=== PATIENT | male | born 1960 | race Caucasian/White ===

== ENCOUNTER 2017-09-17 12:24 | Inpatient (IN) | payer OTHER ==
[~2017-09-17] VITALS: Ht 167.6 cm; Wt 58.3 kg
[~2017-09-17 12:24] MED LIST: ASPIR 8181 MG PO; AUG500 PO; BD LACTINEX1.4 MG PO; CEFDINIR300 M1 PO; COLACE100 MG PO; DIFLUCAN200 MG PO; LANTUS SOLOS100 U/M1 SQ; LIPI10 PO; MAGNESIUM OXID400 MG PO; MYFORTIC180 MG PO; NORCO1 TA2 PO; OMEPRAZOLE40 M1 PO; PREDNISONE5 MG PO; PROGRAF0.5 MG PO; PROGRAF1 MG PO
[2017-09-17 14:31] LABS: BASOPHIL % 0.3 % (0-2)
[2017-09-17 14:32] LABS: CALCIUM 8.3 mg/dL (8.5-10.1); CARBON DIOXIDE 25.9 mmol/L (21-32); CHLORIDE SERUM 100 mmol/L (98-107); CREATININE SERUM 0.9 mg/dL (0.7-1.3); GFR1 > 60 mL/min; GLUCOSE SERUM 423 mg/dL (74-106); POTASSIUM SERUM 4.4 mmol/L (3.5-5.1); SODIUM SERUM 132 mmol/L (136-145)
[2017-09-17 14:33] LABS: PLATELET COUNT 127 x10^3mcL (130-400); RED CELL DISTRIBUTION WIDTH 15.8 % (11.5-14.5)
[2017-09-17 14:42] LABS: microscopic required? YES; urine erythrocyte 1+ (NEGATIVE)
[2017-09-17 14:43] LABS: ALKALINE PHOSPHATASE 119 U/L (46-116); ALT/SGPT 33 U/L (16-63); AST/SGOT 27 U/L (15-37); BILIRUBIN TOTAL 1.4 mg/dL (0.20-1.00); HDL CHOLESTEROL 42 mg/dL (40-60); TOTAL PROTEIN, SERUM 6.2 g/dL (6.4-8.2)
[2017-09-17 14:44] LABS: ALBUMIN 3.1 g/dL (3.4-5.0); CHOLESTEROL 123 mg/dL (<200)
[2017-09-17] MEDS ORDERED: PROGRAF1 MG PO (16:30)
[2017-09-17 16:38] LABS: MAGNESIUM 1.7 mg/dL (1.8-2.4); PHOSPHOROUS 3.5 mg/dL (2.5-4.9)
[2017-09-17 16:40] LABS: T3 TOTAL 0.65 ng/mL
[2017-09-17 16:46] LABS: FREE T4 1.08 ng/dL (0.76-1.46); FREE THYROXINE INDEX 2.8 ug/dL (1.4-4.5); T4(THYROXINE) 7.6 ug/dL (4.7-13.3)
[2017-09-17 16:55] LABS: AMPHETAMINE QUAL UR NONE DETECTED (NEG <=1000)
[2017-09-17 17:21] VITALS: BP 114/86
[2017-09-17 21:19] VITALS: BP 133/66
[2017-09-18 06:24] LABS: CALCIUM 8.1 mg/dL (8.5-10.1); CARBON DIOXIDE 24.4 mmol/L (21-32); CHLORIDE SERUM 105 mmol/L (98-107); CREATININE SERUM 0.8 mg/dL (0.7-1.3); GFR1 > 60 mL/min; GLUCOSE SERUM 217 mg/dL (74-106); MAGNESIUM 1.7 mg/dL (1.8-2.4); PHOSPHOROUS 1.9 mg/dL (2.5-4.9); SODIUM SERUM 135 mmol/L (136-145)
[2017-09-18 06:28] LABS: BASOPHIL % 0.2 % (0-2)
[2017-09-18 06:29] VITALS: BP 126/69
[2017-09-18 07:00] LABS: PLATELET COUNT 115 x10^3mcL (130-400); RED CELL DISTRIBUTION WIDTH 15.8 % (11.5-14.5)
[2017-09-18 09:30] VITALS: BP 129/65
[2017-09-18 13:23] VITALS: BP 123/70
[2017-09-18 17:30] VITALS: BP 132/69
[2017-09-18 21:17] VITALS: BP 138/68
[2017-09-19 06:03] VITALS: BP 141/72
[2017-09-19 07:24] LABS: CALCIUM 7.1 mg/dL (8.5-10.1); CARBON DIOXIDE 18.3 mmol/L (21-32); CHLORIDE SERUM 111 mmol/L (98-107); CREATININE SERUM 0.5 mg/dL (0.7-1.3); GFR1 > 60 mL/min; MAGNESIUM 1.4 mg/dL (1.8-2.4); PHOSPHOROUS 1.6 mg/dL (2.5-4.9); SODIUM SERUM 137 mmol/L (136-145)
[2017-09-19 07:38] LABS: GLUCOSE SERUM 56 mg/dL (74-106); POTASSIUM SERUM 2.8 mmol/L (3.5-5.1)
[2017-09-19 08:07] LABS: PLATELET COUNT 126 x10^3mcL (130-400); RED CELL DISTRIBUTION WIDTH 15.7 % (11.5-14.5)
[2017-09-19 08:08] LABS: BASOPHIL % 0.1 % (0-2)
[2017-09-19] MEDS ORDERED: POTASSIUM CHLO10 MEQ PO (08:25)
[2017-09-19] MEDS ORDERED: BD LACTINEX1.4 MG PO (08:25)
[2017-09-19] MEDS ORDERED: LEVOFLOXACIN500 M1 PO (08:25)
[2017-09-19] MEDS ORDERED: NPHOS PO (08:26)
[2017-09-19] MEDS ORDERED: MAGNESIUM OXID400 MG PO (08:26)
[2017-09-19 08:30] VITALS: BP 124/66
[2017-09-19] MEDS ORDERED: NITROFURANTOIN100 MG PO (10:11)
[2017-09-19 13:15] VITALS: BP 131/76
[2017-09-19 16:14] VITALS: Ht 167.6 cm; Wt 58.3 kg
[2017-09-19 17:12] LABS: CALCIUM 8.7 mg/dL (8.5-10.1); CARBON DIOXIDE 23.9 mmol/L (21-32); CHLORIDE SERUM 105 mmol/L (98-107); CREATININE SERUM 0.7 mg/dL (0.7-1.3); GFR1 > 60 mL/min; GLUCOSE SERUM 240 mg/dL (74-106); MAGNESIUM 2.5 mg/dL (1.8-2.4); PHOSPHOROUS 2.1 mg/dL (2.5-4.9); POTASSIUM SERUM 4.9 mmol/L (3.5-5.1); SODIUM SERUM 136 mmol/L (136-145)
[2017-09-19 17:30] VITALS: BP 166/81
[2017-09-19 18:02] VITALS: BP 144/81
[2017-09-19 18:03] VITALS: BP 144/81
== END 2017-09-19 19:30 | disposition home or self-care (01) | DRG 871 ==
LOC: ED 12:24 → DU 15:29
PROVIDERS: Emergency Medicine; Family Medicine; Family Medicine Sports Medicine
DX: A41.9 Sepsis, unspecified organism (principal); N17.0 Acute kidney failure with tubular necrosis; N39.0 Urinary tract infection, site not specified; Z94.0 Kidney transplant status; E87.1 Hypo-osmolality and hyponatremia; E44.0 Moderate protein-calorie malnutrition; R65.20 Severe sepsis without septic shock; E11.21 Type 2 diabetes mellitus with diabetic nephropathy; E11.65 Type 2 diabetes mellitus with hyperglycemia; E11.319 Type 2 diabetes mellitus with unspecified diabetic retinopathy without macular edema; E11.51 Type 2 diabetes mellitus with diabetic peripheral angiopathy without gangrene; K21.9 Gastro-esophageal reflux disease without esophagitis; E83.42 Hypomagnesemia; D69.59 Other secondary thrombocytopenia; I35.1 Nonrheumatic aortic (valve) insufficiency; I36.1 Nonrheumatic tricuspid (valve) insufficiency; H54.61 Unqualified visual loss, right eye, normal vision left eye; Z79.82 Long term (current) use of aspirin; Z79.4 Long term (current) use of insulin; Z68.21 Body mass index [BMI] 21.0-21.9, adult; Z86.73 Personal history of transient ischemic attack (TIA), and cerebral infarction without residual deficits
CPT/HCPCS: 82962; 83880; 84439; J0696; J1815; J2405; J3475; J3480; J7030; J7050; J7507; J7512; Q0092

== ENCOUNTER 2019-01-27 18:00 | Inpatient (IN) | payer OTHER ==
[~2019-01-27] VITALS: Ht 167.6 cm; Wt 58.5 kg
[~2019-01-27 18:00] MED LIST changes: +LEVOFLOXACIN500 M1 PO; +NITROFURANTOIN100 MG PO; +NPHOS PO; +POTASSIUM CHLO10 MEQ PO
--- NOTE | 2019-01-27 18:53 | NUR ---
DTR BRINGS IN FATHER FROM HOME FOR SUDDEN ONSET NAUSEA/VOMTIING SINCE 0400 TODAY ASSOCIATED WITH EPIGATRIC ABDOMINAL PAIN. DENIES ANY DYSURIA, BUT REPORTS FREQUENCY. LEFT LOWER ARM SHUNT NOTED, BUT REPORTS HE HASNT HAD DIALYSIS SINCE 2013, HE'S A KIDNEY TRANSPLANT RECIEPIENT IN 2013. PT AAOX4, IN MILD DISTRESS, +FACIAL GRIMACING NOTED. RESP EVEN AND UNLABORED, ON RA @98%. SKIN NORMAL FOR ETHNICITY, BUT PER DTR STATES HE LOOKS A LITTLE JAUNDICED. DENIES ANY DRUG AND ETOH ABUSE. PT INFORMED TO COLLECT URINE SPECIMEN, PT TO RESTROOM AT THIS MOMENT.
--- NOTE | 2019-01-27 20:15 | NUR ---
XRAY AT BEDSIDE.
[2019-01-27 20:16] LABS: UA SPECIFIC GRAVITY 1.025 (1.005-1.035); microscopic required? YES; urine erythrocyte 3+ (NEGATIVE)
[2019-01-27 20:27] LABS: CALCIUM 7.4 mg/dL (8.5-10.1); CARBON DIOXIDE 23.6 mmol/L (21-32); CHLORIDE SERUM 96 mmol/L (98-107); CREATININE SERUM 1.3 mg/dL (0.7-1.3); GFR1 60 mL/min; GLUCOSE SERUM 350 mg/dL (74-106); PLATELET COUNT 150 x10^3mcL (130-400); POTASSIUM SERUM 4.9 mmol/L (3.5-5.1); SODIUM SERUM 134 mmol/L (136-145)
[2019-01-27 20:29] LABS: RED CELL DISTRIBUTION WIDTH 14.7 % (11.5-14.5)
[2019-01-27 20:34] LABS: ALBUMIN 3.3 g/dL (3.4-5.0); ALKALINE PHOSPHATASE 135 U/L (46-116); ALT/SGPT 23 U/L (16-63); AST/SGOT 23 U/L (15-37); BILIRUBIN TOTAL 1.2 mg/dL (0.20-1.00); TOTAL PROTEIN, SERUM 6.8 g/dL (6.4-8.2)
[2019-01-27 20:57] LABS: BAND NEUTROPHIL 4 % (0-10); METAMYELOCTE 1 % (0-2); MONOCYTE 5 % (0-7); SEGMENTED NEUTROPHILS 85 % (37-75)
[2019-01-27 20:58] LABS: rbc morphology (normal/abnorm) NORMAL (NORMAL)
[2019-01-27 20:59] LABS: PLATELET MORPHOLOGY PLATELETS NORMAL
--- NOTE | 2019-01-27 21:03 | NUR ---
MD DAVIES AWARE OF PTS TEMP, AWATING ORDERS.
--- NOTE | 2019-01-27 22:48 | NUR ---
PT RESTING WITH EYE CLOSE, EQUAL CHEST RISE AND FALL NOTED. PT HYPER TENSIVE AT 171/81, ALL OTHER VITALS STABLE. NO ACUTE DISTRESS NOTED.
--- NOTE | 2019-01-27 23:13 | NUR ---
GAVE REPORT TO SAÚL WITH [facility] [employer].
--- NOTE | 2019-01-27 23:14 | NUR ---
GAVE REPORT TO SAÚL WITH [facility] [employer] FOR ADMISSION.
[2019-01-27] MEDS ORDERED: SENSIPAR30 M1 PO ×2 (23:38→23:39)
[2019-01-27] MEDS ORDERED: CEL500 PO (23:38)
[2019-01-27] MEDS ORDERED: DIFLUCAN200 MG PO (23:38)
[2019-01-27] MEDS ORDERED: HUMALOG100 UNIT/1 SQ (23:39)
--- NOTE | 2019-01-27 23:51 | NUR ---
REPORT GIVEN TO DENVER DENNISON TO ASSUME CARE OF PT.
--- NOTE | 2019-01-28 00:30 | NUR ---
RECEIVED PT FROM ED VIA [facility]ERNEY, CAME IN DUE TO VOMITING, DIZZINESS AND FEVER X1 WEEK. AAOX4. C/O MILD DIZZINESS ON AMBULATION. ABLE TO FOLLOW COMMANDS. NO FACIAL DROOP/ARM DRIFT NOTED. NO SOB NOTED, LUNG SOUNDS CTA. DENIES CHEST PAIN/PRESSURE. 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 BOWEL SOUNDS ACTIVE. DENIES ABDOMINAL PAIN. C/O BURNING SENSATION ON URINATION. W/ OLD GRAFT ON THE LEFT ARM, HAS HISTORY OF KIDNEY TRANSPLANT. 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 SIDE RAILS UPX2. CALL LIGHT ON REACH. ENDORSED TO PRIMARY NURSE DENVER FOR CONTINUITY OF CARE
[2019-01-28 00:38] VITALS: BP 105/59
[2019-01-28 00:45] VITALS: Ht 167.6 cm; Wt 58.5 kg
--- NOTE | 2019-01-28 00:48 | NUR ---
PT C/O NAUSEA AND VOMITING. MEDICATED WITH PRN ZOFRAN PER JUL. WILL CONTINUE TO MONITOR.
[2019-01-28 06:08] VITALS: BP 146/80
[2019-01-28 06:42] LABS: CALCIUM 7.2 mg/dL (8.5-10.1); CARBON DIOXIDE 21.9 mmol/L (21-32); CHLORIDE SERUM 104 mmol/L (98-107); GFR1 > 60 mL/min; GLUCOSE SERUM 239 mg/dL (74-106); POTASSIUM SERUM 4.5 mmol/L (3.5-5.1); SODIUM SERUM 139 mmol/L (136-145)
--- NOTE | 2019-01-28 06:47 | NUR ---
PT TEMP 100.3, COOLING MEASURES IN PLACE. MEDICATED WITH PRN TYLENOL PER JUL. CURRENT TEMP 100. PT SLEPT AT INTERVALS THROGHOUT THE SHIFT, BREATHING EVEN AND UNLABORED ON RA. NO ACUTE DISTRESS NOTED. BED AT LOWEST SETTING. SIDE RAILS X2 UP. CALL LIGHT WITHING REACH. WILL ENDORSE CARE TO AM NURSE.
[2019-01-28 07:18] LABS: PLATELET COUNT 123 x10^3mcL (130-400)
--- NOTE | 2019-01-28 07:40 | NUR ---
RECEIVED PT FROM COLLISION CENTER MANAGER RN. Allie/NIRAV. MED SURG. DENIES CHEST PAIN/PRESSURE. RESPIRATIONS EQUAL AND UNLABORED ON RA. DENIES SOB. PT DENIES ANY PAIN AT THIS TIME. PT STATES HE DOES HAVE PAIN UPON URINATION. TEMPERATURE CHECKED WAS 99.5. ENCOURAGED PT TO KEEP COOLING MEASURES IN PLACE TO PREVENT TEMPERATURE FROM INCREASING. PT VERBALIZED UNDERSTANDING. PT DENIES ANY NAUSEA AT THIS TIME. IV PATENT AND INFUSING TO RFA. NO REDNESS OR SWELLING NOTED. WILL CONTINUE TO MONITOR. CALL LIGHT IN REACH. BED IN LOWEST POSITION.
[2019-01-28 09:39] VITALS: BP 111/63
--- NOTE | 2019-01-28 10:28 | NUR ---
PT SITTING UP IN BED. NO ACUTE RESP DISTRESS NOTED ON RA. PT DENIES ANY PAIN AT THIS TIME. GIVEN PO MEDS. TOLERATED WELL. EMPTIED 150 ML OF MOY URINE FROM URINAL. TEMPERATURE CHECKED WAS 98.1. IV ANTIBIOTICS INFUSING ORDERED. NO REDNESS OR SWELLING NOTED. WILL CONTINUE TO MONITOR. CALL LIGHT IN REACH. BED IN LOWEST POSITION.
[2019-01-28 13:35] LABS: BAND NEUTROPHIL 8 % (0-10); MONOCYTE 7 % (0-7); SEGMENTED NEUTROPHILS 80 % (37-75)
[2019-01-28 13:36] LABS: PLATELET MORPHOLOGY LARGE PLATELET SEEN; rbc morphology (normal/abnorm) NORMAL (NORMAL)
--- NOTE | 2019-01-28 14:20 | NUR ---
PT SITTING UP IN BED. NO ACUTE RESP DISTRESS NOTED ON RA. PT DENIES ANY PAIN AT THIS TIME. GIVEN PO MEDS. TOLERATED WELL. WILL CONTINUE TO MONITOR. CALL LIGHT IN REACH. BED IN LOWEST POSITION.
--- NOTE | 2019-01-28 16:24 | NUR ---
PT SITTING UP IN BED. NO ACUTE RESP DISTRESS NOTED ON RA. PT C/O PAIN UPON URINATION. EDUCATED PT THAT IT CAN HAPPEN WHEN PT HAVE UTI. PT VERBALIZED UNDERSTANDING. PT DENIES ANY OTHER PAIN AT THIS TIME. IV PATENT AND INFUSING TO RFA. NO REDNESS OR SWELLING NOTED. PT DENIES ANY NAUSEA AT THIS TIME. EMPTIED 320 ML OF DARK YELLOW URINE FROM URINAL. WILL CONTINUE TO MONITOR. CALL LIGHT IN REACH. BED IN LOWEST POSITION.
[2019-01-28 16:51] VITALS: BP 125/76
--- NOTE | 2019-01-28 19:20 | NUR ---
PT RECEIVED FROM AM NURSE. PT A/O X4, [place] SPEAKING, ABLE TO MAKE NEEDS KNOWN. MED-SURG, DENIES ANY CP/PRESSURE. PULSES PALPALBE, NO EDEMA PRESENT. BREATHING IS EVEN AND UNLABORED, NO RESP DISTRESS NOTED. ABD SOFT AND NONDISTENDED, DENIES N/V. VOIDS FREELY, URINAL AT BEDSIDE; PT REPORTS BURNING UPON URINATION AT TIMES. OLD AV SHUNT NOTED TO [facility], PT HAS HX OF KIDNEY TRANSPLANT. AMBULATORY WITH STEADY GAIT. SCAB NOTED TO INDERJIT DACOSTA. PT DENIES HAVING ANY PAIN AT THIS TIME. IV TO RFA, PATENT AND INTACT, SITE FREE FROM REDNESS OR SWELLING. CONTACT PRECAUTION IN PLACE FOR HX OF MDRO IN URINE. NO ACUTE DISTRESS NOTED. CALL LIGHT WITHIN REACH. WILL CONT TO MONITOR.
[2019-01-28 20:38] VITALS: BP 112/64
--- NOTE | 2019-01-29 03:42 | NUR ---
PT C/O 5/10 HEADACHE PAIN, PRN TYLENOL GIVEN ORDERED. NO ACUTE DISTRESS NOTED. WILL CONT TO MONITOR.
[2019-01-29 05:40] VITALS: BP 130/73
--- NOTE | 2019-01-29 06:05 | NUR ---
PT SLEPT AT INTERVALS THROUGHOUT THE EVENING. BREATHING IS EVEN AND UNLABORED, NO RESP DISTRESS NOTED. NO ACUTE CHANGES ENCOUNTERED DURING SHIFT. ALL NEEDS MET AND ANTICIPATED. PT COMPLIANT WITH NURSING CARE. IV TO RFA, PATENT AND INTACT. CONTACT PRECAUTIONS MAINTAINED. CALL LIGHT WITHIN REACH. WILL ENDORSE CARE TO AM NURSE.
[2019-01-29 06:31] LABS: CALCIUM 7.2 mg/dL (8.5-10.1); CARBON DIOXIDE 21.8 mmol/L (21-32); CHLORIDE SERUM 102 mmol/L (98-107); CREATININE SERUM 0.7 mg/dL (0.7-1.3); GFR1 > 60 mL/min; GLUCOSE SERUM 241 mg/dL (74-106); MAGNESIUM 1.4 mg/dL (1.8-2.4); SODIUM SERUM 135 mmol/L (136-145)
--- NOTE | 2019-01-29 07:28 | NUR ---
PT IN NO ACUTE DISTRESS. CONTINUITY OF CARE ENDORSED TO AM NURSE. ALL QUESTIONS AND CONCERNS ADDRESSED.
--- NOTE | 2019-01-29 07:30 | NUR ---
RECEIVED PT FROM INTEGRATED MARKETING SPECIALIST RN. Allie/NIRAV. MED SURG. DENIES CHEST PAIN/PRESSURE. RESPIRATIONS EQUAL AND UNLABORED ON RA. DENIES SOB. PT DENIES ANY PAIN AT THIS TIME. PT STATES "I SOMETIMES HAVE PAIN WHEN PEEING" LFA OLD SHUNT/GRAFT. IV TO RFA PATENT AND INFUSING. NO REDNESS OR SWELLING NOTED. LLE DRY SCAB IN PLACE, INDERJIT. WILL CONTINUE TO MONITOR. CALL LIGHT IN REACH. BED IN LOWEST POSITION.
[2019-01-29 08:01] LABS: BASOPHIL % 0 % (0-2); PLATELET COUNT 121 x10^3mcL (130-400); RED CELL DISTRIBUTION WIDTH 14.8 % (11.5-14.5)
[2019-01-29 08:21] VITALS: BP 143/79
--- NOTE | 2019-01-29 09:16 | NUR ---
PT SITTING UP IN CHAIR AT BEDSIDE. FAMILY AT BEDSIDE. NO ACUTE RESP DISTRESS NOTED ON RA. PT DENIES ANY PAIN AT THIS TIME. GIVEN PO MEDS. TOLERATED WELL. IV ANTIBIOTICS INFUSING ORDERED. NO REDNESS OR SWELLING NOTED. WILL CONTINUE TO MONITOR. CALL LIGHT IN REACH. BED IN LOWEST POSITION.
--- NOTE | 2019-01-29 12:16 | NUR ---
DR. LINCOLN AT BEDSIDE EXPLAINING TO PT DISCHARGE PLAN FOR TOMORROW, STILL AWAITING FINAL BLOOD CULTURE RESULTS. DR. LINCOLN MADE AWARE OF BLOOD SUGARS, WILL CHANGE DIET TO [facility] AND ADD ACCU CHECKS WITH SLIDING SCALE PROTOCOL.
--- NOTE | 2019-01-29 13:35 | NUR ---
PT SITTING UP IN BED. PT EATING LUNCH AND TOLERATING WELL. PT DENIES ANY PAIN AT THIS TIME. GIVEN PO MEDS. TOLERATED WELL. IV PATENT AND INFUSING TO LFA. NO REDNESS OR SWELLING NOTED. EMPTIED 220 ML OF CLEAR YELLOW URINE FROM URINAL. WILL CONTINUE TO MONITOR. CALL LIGHT IN REACH. BED IN LOWEST POSITION.
[2019-01-29] MEDS ORDERED: PROGRAF1 MG PO (17:16)
[2019-01-29 17:20] VITALS: BP 158/56
--- NOTE | 2019-01-29 17:39 | NUR ---
PT SITTING UP AT BEDSIDE. PT BROUGHT IN PT HOME MEDICATION. MED RECONCILIATION UPDATED. PAGED DR. SALMERON REGARDING HOME MEDS, AWAITING CALL BACK. PT BLOOD SUGAR CHECKED WAS 525, RECHECKED WAS 484, GIVEN 21 UNITS OF REGULAR INSULIN PER SLIDING SCALE, PROTOCOL INITIATED. WILL NOTIFY DR. SALMERON. WILL RECHECK BLOOD SUGAR AFTER 15 MINUTES. WILL CONTINUE TO MONITOR. CALL LIGHT IN REACH. BED IN LOWEST POSITION.
--- NOTE | 2019-01-29 18:33 | NUR ---
PAGED [facility] AGAIN, WAS TOLD, DR. AYALA IS YOUTH NUTRITIONAL MONITOR, AWAITING CALL BACK.
--- NOTE | 2019-01-29 18:53 | NUR ---
SPOKE WITH DR. AYALA, WOOD GRINDER OPERATOR FOR DR. LINCOLN. DR. AYALA NOTIFIED OF BLOOD SUGAR OF 484, GIVEN 21 UNITS OF REGULAR INSULIN PER SLIDING SCALE, PT RECHECKED AFTER 1 HOUR WAS 412, PER DR. AYALA CONTINUE TO MONITOR FOLLOW SLIDING SCALE. DR. AYALA ALSO INFORMED OF UPDATED MED REC, PER DR. AYALA OKAY TO CHANGE CELLCEPT 500 MG PO BID, PROGRAFT 1 MG PO BID AND FLUCONAZOLE 200 MG PO BID. CONFIRMED ORDERS TORB, ORDERS ENTERED.
--- NOTE | 2019-01-29 19:20 | NUR ---
PT RECEIVED FROM AM NURSE. PT A/O X4, SURINAMESE SPEAKING, ABLE TO MAKE NEEDS KNOWN. MED-SURG, DENIES ANY CP/PRESSURE. PULSES PALPALBE, NO EDEMA PRESENT. BREATHING IS EVEN AND UNLABORED, NO RESP DISTRESS NOTED. ABD SOFT AND NONDISTENDED, DENIES N/V. VOIDS FREELY, URINAL AT BEDSIDE; PT REPORTS EPISODES OF BURNING UPON URINATION. OLD LEFT ARM GRAFT NOTED. PT HAS HX OF KIDNEY TRANSPLANT. AMBULATORY WITH STEADY GAIT. SCAB NOTED TO INDERJIT DACOSTA. PT DENIES HAVING ANY PAIN AT THIS TIME. IVF INFUSING WELL TO RFA, PATENT AND INTACT, SITE FREE FROM REDNESS OR SWELLING. NO ACUTE DISTRESS NOTED. CALL LIGHT WITHIN REACH. WILL CONT TO MONITOR.
--- NOTE | 2019-01-29 19:25 | NUR ---
ENDORSED CARE TO CAR WASH MANAGER RN IMELDA. ALL QUESTIONS AND CONCERNS ADDRESSED.
[2019-01-29 21:04] VITALS: BP 118/70
--- NOTE | 2019-01-30 00:03 | NUR ---
PT RESTING IN BED WITH EYES CLOSED, BUT IS EASILY AROUSABLE. BREATHING IS EVEN AND UNLABORED, NO RESP DISTRESS NOTED. PT DENIES HAVING ANY PAIN AT THIS TIME. URINAL EMPTIED-400 ML YELLOW URINE NOTED. NO ACUTE DISTRESS NOTED. IVF INFUSING WELL, SITE WNL. CALL LIGHT WITHIN REACH. WILL CONT TO MONITOR.
[2019-01-30 06:09] VITALS: BP 139/84
[2019-01-30 06:37] LABS: BASOPHIL % 0.2 % (0-2); PLATELET COUNT 142 x10^3mcL (130-400); RED CELL DISTRIBUTION WIDTH 14.5 % (11.5-14.5)
[2019-01-30 06:46] LABS: CALCIUM 7.6 mg/dL (8.5-10.1); CARBON DIOXIDE 25.6 mmol/L (21-32); CHLORIDE SERUM 100 mmol/L (98-107); CREATININE SERUM 0.6 mg/dL (0.7-1.3); GFR1 > 60 mL/min; GLUCOSE SERUM 258 mg/dL (74-106); MAGNESIUM 1.4 mg/dL (1.8-2.4); POTASSIUM SERUM 3.8 mmol/L (3.5-5.1); SODIUM SERUM 134 mmol/L (136-145)
--- NOTE | 2019-01-30 06:53 | NUR ---
PT SLEPT AT INTERVALS THROUGHOUT THE EVENING. BREATHING IS EVEN AND UNLABORED, NO RESP DISTRESS NOTED. PT C/O BURNING UPON URINATION, PT REQUESTING TYLENOL. PRN TYLENOL GIVEN ORDERED. NO ACUTE CHANGES ENCOUNTERED DURING SHIFT. ALL NEEDS MET AND ANTICIPATED. PT COMPLIANT WITH NURSING CARE. IV TO RFA, PATENT AND INTACT. CALL LIGHT WITHIN REACH. WILL ENDORSE CARE TO AM NURSE.
--- NOTE | 2019-01-30 08:00 | NUR ---
PATIENT RECEIVED SLEEPY BUT ARROUSABLE. IV INTACT AND PATIENT HAS BEEN WITH ELEVATED BLOOD SUGAR AND NOTED ON PREDNISONE AND ON LANTUS AND REGULAR INSULIN VIA SLIDING SCALE. THE OLD SHUNT TO THE LEFT ARM NOTED AND PATIENT HAS BEEN NOTED AND PATIENT WITH HISTORY OF KIDNEY TRANSPLANT AND KIDNEY FAILURE NOTED. 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 PATIENT HAS HISTORY OF HTN AND HAS HAD A CVA IN 2018. HE DOES NOT SEEM TO HAVE ANY ACUTE WEAKNESS TO THE EXTREMITIES DISPITE THIS. PATIENT HAS CHEST XRAY THAT SHOWS PULMONARY NODULE. LUNGS ARE DIMINISHED BUT DOES NOT APPEAR SOB. THE SKIN IS MOIST BUT NO FEVER AT THIS TIME. HIS VITALS ARE AT 99.2, 84, 18, 139/84, 98%. PATIENT HAS SCABBED AREAS TO THE LOWER AND UPPER EXTREMITES BUT HEALING WELL. NO EDEMA NOTED AND PATIENT HAS BEEN ON ROCPHIN AND DIFLUCAN AND NO ADVERSE REACTION REPORTED. NOTED LABS ARE THE NA AT 135, MAG AT 1.4, CA AT 7.6, AND HIS BLOOD SUGAR OF 406 THIS AM AND 18 UNITS OF REGULAR WAS GIVEN.
--- NOTE | 2019-01-30 08:13 | NUR ---
Patient received in bed. Alert and oriented x 4. Patient is malay speaking. No signs of distress noted. No shortness of breath. Patient able to sit up from bed to chair appropriately. Will continue to monitor. Call light within reach.
[2019-01-30 08:59] VITALS: BP 122/67
[2019-01-30] MEDS ORDERED: CIPRO500 MG PO (09:37)
--- NOTE | 2019-01-30 11:53 | NUR ---
INSERTED 22G IV ON RIGHT HAND. NO SIGNS OF INFILTRATION NOTED. NO BLEEDING, DRAINAGE, OR EDEMA INDICATED.
[2019-01-30] MEDS ORDERED: PROGRAF1 MG PO (13:13)
[2019-01-30 13:14] VITALS: BP 122/67
--- NOTE | 2019-01-30 14:46 | NUR ---
PATIENT HAS RECEIVED ORDERS FOR DISCHARGE HOME. REMOVED IV AND GAVE INSTRUCTIONS AND TO FOLLOW UP WITH DR BECKWITH ON THE . HAD CALLED THE DR OR POSSIBLE ORDERS FOR INCREASE IN HIS DIABETIC MEDICATION THE SUGAR HAVE BEEN HIGH AND IN THE [address] WANTS THE PATIENT TO CONTINUE HIS HOME MEDICATIONS PREVIOUSLY. AWAITING FAMILY FOR MANAGER ADVERTISING. PATIENT TO TAKE CIPRO FOR THE URINARY INFECTION FOR 10 DAYS DIRRECTED.
== END 2019-01-30 14:47 | disposition home or self-care (01) | DRG 872 ==
LOC: ED 18:00 → MU 23:39
PROVIDERS: Emergency Medicine; Internal Medicine Pulmonary Disease; ADMIT Internal Medicine Pulmonary Disease
DX: A41.9 Sepsis, unspecified organism (principal); Z94.0 Kidney transplant status; N39.0 Urinary tract infection, site not specified; B96.89 Other specified bacterial agents as the cause of diseases classified elsewhere; E11.9 Type 2 diabetes mellitus without complications; I12.9 Hypertensive chronic kidney disease with stage 1 through stage 4 chronic kidney disease, or unspecified chronic kidney disease; N18.9 Chronic kidney disease, unspecified; Z68.20 Body mass index [BMI] 20.0-20.9, adult; Z79.4 Long term (current) use of insulin; Z79.84 Long term (current) use of oral hypoglycemic drugs
CPT/HCPCS: 82962; G0378; J0696; J1815; J2405; J2543; J3370; J3475; J7030; J7040; J7050; J7507; J7512; J7517; Q0092

== ENCOUNTER 2019-03-31 15:55 | Observation (INO) | payer OTHER ==
[~2019-03-31] VITALS: Ht 167.6 cm; Wt 56.2 kg
[~2019-03-31 15:55] MED LIST changes: +CEL500 PO; +CIPRO500 MG PO; +HUMALOG100 UNIT/1 SQ; +SENSIPAR30 M1 PO
[2019-03-31 16:07] VITALS: Ht 167.6 cm; Wt 56.2 kg
[2019-03-31 17:53] LABS: microscopic required? YES; urine erythrocyte TRACE (NEGATIVE)
[2019-03-31 17:58] LABS: BASOPHIL % 0 % (0-2); PLATELET COUNT 354 x10^3mcL (130-400); RED CELL DISTRIBUTION WIDTH 15.6 % (11.5-14.5)
[2019-03-31 18:03] LABS: CALCIUM 9.1 mg/dL (8.5-10.1); CARBON DIOXIDE 21.2 mmol/L (21-32); CHLORIDE SERUM 100 mmol/L (98-107); CREATININE SERUM 0.7 mg/dL (0.7-1.3); GFR1 > 60 mL/min; GLUCOSE SERUM 274 mg/dL (74-106); POTASSIUM SERUM 4.2 mmol/L (3.5-5.1); SODIUM SERUM 134 mmol/L (136-145)
[2019-03-31 18:08] LABS: ALKALINE PHOSPHATASE 111 U/L (46-116); ALT/SGPT 25 U/L (16-63); AST/SGOT 14 U/L (15-37); BILIRUBIN TOTAL 0.41 mg/dL (0.20-1.00); LIPASE 44 IU/L (73-393); TOTAL PROTEIN, SERUM 7.1 g/dL (6.4-8.2)
[2019-03-31 18:09] LABS: ALBUMIN 2.5 g/dL (3.4-5.0)
[2019-03-31 20:00] VITALS: BP 184/76
[2019-04-01 02:53] VITALS: BP 185/96
[2019-04-01 04:16] VITALS: BP 158/68
[2019-04-01 07:45] LABS: BILIRUBIN DIRECT 0.16 mg/dL (0.0-0.2); BILIRUBIN TOTAL 0.45 mg/dL (0.20-1.00); TOTAL PROTEIN, SERUM 7.2 g/dL (6.4-8.2)
[2019-04-01 07:46] LABS: ALBUMIN 2.5 g/dL (3.4-5.0)
[2019-04-01 08:24] VITALS: BP 151/72
[2019-04-01 12:04] VITALS: BP 129/60
[2019-04-01 12:19] VITALS: BP 158/68
[2019-04-01 12:35] LABS: BASOPHIL % 0.7 % (0-2); PLATELET COUNT 348 x10^3mcL (130-400)
[2019-04-01 12:38] LABS: CALCIUM 9.1 mg/dL (8.5-10.1); CHLORIDE SERUM 100 mmol/L (98-107); CREATININE SERUM 0.7 mg/dL (0.7-1.3); GFR1 > 60 mL/min; GLUCOSE SERUM 207 mg/dL (74-106); POTASSIUM SERUM 4.2 mmol/L (3.5-5.1); SODIUM SERUM 134 mmol/L (136-145)
== END 2019-04-01 15:55 | disposition home or self-care (01) | DRG 690 ==
LOC: ED 15:55 → DU 18:55 → MU 18:55 → DU 18:55 → MU 19:36 → DU 04-01 03:11
PROVIDERS: Emergency Medicine; ADMIT Internal Medicine Pulmonary Disease
DX: N39.0 Urinary tract infection, site not specified (principal); Z94.0 Kidney transplant status; E11.22 Type 2 diabetes mellitus with diabetic chronic kidney disease; N18.9 Chronic kidney disease, unspecified; Z79.4 Long term (current) use of insulin; Z79.899 Other long term (current) drug therapy
CPT/HCPCS: 82962; 90732; G0378; J0360; J0696; J2270; J2405; J2543; J2550; J7030; J7060; J7512; Q0092